=== PATIENT | female | born 1970 | race Caucasian/White ===

== ENCOUNTER 2019-01-28 21:48 | Emergency (ER) | payer SELFPAY ==
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
== END 2019-01-28 23:25 | disposition home or self-care (01) ==
LOC: ERS 21:48
DX: M54.2 Cervicalgia (principal); E78.5 Hyperlipidemia, unspecified; D64.9 Anemia, unspecified; Z79.899 Other long term (current) drug therapy; V49.50XA Passenger injured in collision with unspecified motor vehicles in traffic accident, initial encounter
CPT/HCPCS: 72125; L0120